=== PATIENT | female | born 1940 | race Caucasian/White ===

== ENCOUNTER 2022-06-08 06:34 | Inpatient (IN) | payer MEDICARE ==
[~2022-06-08] VITALS: Ht 154.9 cm; Wt 63.5 kg
[2022-06-08] MEDS ORDERED: ACETAMINOPHEN 325 MG TAB PO ONE (07:00)
[2022-06-08 07:11] LABS: BASOPHILS % 0.2 % (0.0-1.0); EOSINOPHILS % 0.1 % (0.0-6.0); HEMATOCRIT 40.5 % (34.2-44.1); HEMOGLOBIN 13.3 g/dL (12.0-16.0); LYMPHOCYTES # (AUTO) 1.4 (1.0-3.2); LYMPHOCYTES % 8.7 % (18.0-39.1); MEAN CORPUSCULAR HEMOGLOBIN 29.8 pg (28-32); MEAN CORPUSCULAR HGB CONC 32.8 g/dL (31-35); MEAN CORPUSCULAR VOLUME 90.8 fL (81-99); MONOCYTES # (AUTO) 1.5 (0.2-0.8); MONOCYTES % 9.2 % (4.4-11.3); NEUTROPHILS % 81.4 % (38.7-80.0); PLATELET COUNT 252 x10e3/uL (140-360); RED BLOOD COUNT 4.46 x10e6/uL (3.6-5.1); RED CELL DISTRIBUTION WIDTH 14.2 % (11.7-14.4)
[2022-06-08] MEDS ORDERED: SODIUM CHLORIDE 0.9% 1000ML 1,000 ML ONE (07:14)
[2022-06-08 07:23] LABS: CLARITY,URINE SL CLOUDY (CLEAR); COLOR,URINE YELLOW (YELLOW); KETONES,URINE NEGATIVE (NEGATIVE); LEUKOCYTE ESTERASE ,URINE MODERATE (NEGATIVE); NITRITE,URINE POSITIVE (NEGATIVE); PROTEIN,URINE DIPSTICK TRACE (NEGATIVE); URINE UROBILINOGEN 0.2 mg/dL (0.2 - 1)
[2022-06-08 07:31] LABS: ALBUMIN 3.2 g/dL (3.5-5.0); ALBUMIN/GLOBULIN RATIO 0.7 (0.8-2.0); ANION GAP 16.4 mmol/L (8-16); CALCIUM 8.9 mg/dL (8.4-10.2); CREATININE, SERUM 0.83 mg/dL (0.57-1.11); POTASSIUM 3.4 mmol/L (3.5-5.1)
[2022-06-08 07:37] LABS: BACTERIA,URINE MANY /HPF; WBC,URINE (MAN) 21-50 /HPF (0-5)
[2022-06-08] MEDS ORDERED: SODIUM CHLORIDE FLUSH 10 ML SYR INJ PRN (11:00)
[2022-06-08] MEDS ORDERED: ONDANSETRON HCL INJ 2MG/ML 2ML 2 MG/ML VIAL IV PRN (15:45)
[2022-06-08] MEDS ORDERED: ACETAMINOPHEN 325 MG TAB PO PRN (15:45)
[2022-06-08] MEDS ORDERED: POLYETHYLENE GLYCOL 3350 17 GM PACK PO PRN (15:45)
[2022-06-08] MEDS ORDERED: VITAMIN D350 MCG PO (16:54)
[2022-06-08] MEDS ORDERED: ATORVASTATIN CA10 MG PO (16:54)
[2022-06-08] MEDS ORDERED: ASPIRIN CHEW81 MG PO (16:54)
[2022-06-08] MEDS ORDERED: VESICARE5 MG PO (16:54)
[2022-06-08] MEDS ORDERED: VITAMIN C500 MG PO (16:54)
[2022-06-08] MEDS ORDERED: METOPROLOL PO (16:54)
[2022-06-08] MEDS ORDERED: OMEPRAZOLE20 M2 PO (16:54)
[2022-06-08] MEDS ORDERED: MYBETRIQ (16:54)
[2022-06-08] MEDS ORDERED: FLUOXETINE HCL20 M1 PO (16:54)
[2022-06-08] MEDS ORDERED: LOSARTAN POTASS50 MG PO (16:54)
[2022-06-08] MEDS ORDERED: [UNRECOGNIZED DRUG - OTHER] PO (16:56)
[2022-06-08] MEDS ORDERED: MYRBETRIQ50 MG PO (16:56)
[2022-06-08 17:05] VITALS: BP 158/87
[2022-06-08 17:06] VITALS: BP 158/87
[2022-06-08 17:11] VITALS: BP 158/87
[2022-06-08 17:17] VITALS: BP 158/87
[2022-06-08] MEDS: DOCUSATE SODIUM 100 MG CAP PO SCH (17:58)
[2022-06-08] MEDS: ASCORBIC ACID 500 MG TAB PO SCH (17:58)
[2022-06-08] MEDS: FAMOTIDINE 20 MG TAB PO SCH (17:58)
[2022-06-08] MEDS: ZINC SULFATE 220 MG CAP PO SCH (17:58)
[2022-06-08] MEDS ORDERED: NIRMATRELVIR/RITONAVIR 1 EACH BOX PO SCH (18:30)
[2022-06-08 20:00] VITALS: BP 145/81
[2022-06-08] MEDS ORDERED: SODIUM CHLORIDE 0.9% 250ML 250 ML ONE (20:47)
[2022-06-08] MEDS: ATORVASTATIN 10 MG TAB PO SCH (21:00)
[2022-06-08] MEDS: NIRMATRELVIR/RITONAVIR 1 EACH BOX PO SCH (22:02)
[2022-06-09] VITALS (7 sets, daily range): BP systolic 110–141; BP diastolic 56–85
[2022-06-09 05:56] LABS: BASOPHILS % 0.3 % (0.0-1.0); EOSINOPHILS % 0.1 % (0.0-6.0); HEMATOCRIT 38.2 % (34.2-44.1); HEMOGLOBIN 12.3 g/dL (12.0-16.0); LYMPHOCYTES % 8.7 % (18.0-39.1); MEAN CORPUSCULAR HEMOGLOBIN 29.8 pg (28-32); MEAN CORPUSCULAR HGB CONC 32.2 g/dL (31-35); MEAN CORPUSCULAR VOLUME 92.5 fL (81-99); MONOCYTES % 9.3 % (4.4-11.3); NEUTROPHILS # (AUTO) 8.9 (2.1-6.9); NEUTROPHILS % 81.1 % (38.7-80.0); PLATELET COUNT 243 x10e3/uL (140-360); RED BLOOD COUNT 4.13 x10e6/uL (3.6-5.1); RED CELL DISTRIBUTION WIDTH 14.6 % (11.7-14.4)
[2022-06-09 06:26] LABS: ALBUMIN 2.5 g/dL (3.5-5.0); ALBUMIN/GLOBULIN RATIO 0.6 (0.8-2.0); ANION GAP 15.2 mmol/L (8-16); CALCIUM 8.1 mg/dL (8.4-10.2); CREATININE, SERUM 0.81 mg/dL (0.57-1.11); MAGNESIUM 1.8 MG/DL (1.3-2.1); PHOSPHORUS 2.9 MG/DL (2.3-4.7); POTASSIUM 3.2 mmol/L (3.5-5.1)
[2022-06-09 06:48] LABS: THYROID STIMULATING HORMONE 1.87 uIU/mL (0.350-4.940)
[2022-06-09] MEDS: MIRABEGRON 50 MG PO SCH (09:00)
[2022-06-09] MEDS: [UNRECOGNIZED DRUG - OTHER] PO SCH ×2 (09:00→16:28)
[2022-06-09] MEDS ORDERED: ONDANSETRON HCL 4 MG ORAL DISINTEGRATING TAB PO PRN (09:15)
[2022-06-09] MEDS ORDERED: POTASSIUM CHLORIDE 10MEQ EA PO ONE (09:30)
[2022-06-09] MEDS: ASPIRIN 81 MG CHEW TAB PO SCH (09:51)
[2022-06-09] MEDS: FAMOTIDINE 20 MG TAB PO SCH ×2 (09:51→16:28)
[2022-06-09] MEDS: DOCUSATE SODIUM 100 MG CAP PO SCH ×2 (09:51→16:28)
[2022-06-09] MEDS: LOSARTAN POTASSIUM 25 MG TAB PO SCH (09:51)
[2022-06-09] MEDS: SOLIFENACIN SUCCINATE 5 MG TAB PO SCH (09:51)
[2022-06-09] MEDS: ZINC SULFATE 220 MG CAP PO SCH ×2 (09:52→16:29)
[2022-06-09] MEDS: CHOLECALCIFEROL 400 UNIT TAB PO SCH (09:52)
[2022-06-09] MEDS: FLUOXETINE HCL 20 MG CAP PO SCH (09:52)
[2022-06-09] MEDS: METOPROLOL SUCCINATE 50 MG TAB XL PO SCH (09:52)
[2022-06-09] MEDS: ASCORBIC ACID 500 MG TAB PO SCH ×2 (09:52→16:29)
[2022-06-09] MEDS: NIRMATRELVIR/RITONAVIR 1 EACH BOX PO SCH ×2 (11:49→20:52)
[2022-06-09] MEDS ORDERED: ZIPRASIDONE 20 MG VIAL IM PRN (20:15)
[2022-06-09] MEDS: ATORVASTATIN 10 MG TAB PO SCH (20:51)
[2022-06-10] VITALS (8 sets, daily range): BP systolic 145–171; BP diastolic 79–93
[2022-06-10 05:54] LABS: BASOPHILS % 0.4 % (0.0-1.0); EOSINOPHILS # (AUTO) 0.1 (0.0-0.4); EOSINOPHILS % 0.8 % (0.0-6.0); HEMATOCRIT 37.3 % (34.2-44.1); HEMOGLOBIN 12.1 g/dL (12.0-16.0); LYMPHOCYTES # (AUTO) 1.3 (1.0-3.2); LYMPHOCYTES % 16.9 % (18.0-39.1); MEAN CORPUSCULAR HEMOGLOBIN 29.4 pg (28-32); MEAN CORPUSCULAR HGB CONC 32.4 g/dL (31-35); MEAN CORPUSCULAR VOLUME 90.8 fL (81-99); MONOCYTES # (AUTO) 0.9 (0.2-0.8); MONOCYTES % 11.8 % (4.4-11.3); NEUTROPHILS # (AUTO) 5.5 (2.1-6.9); NEUTROPHILS % 69.5 % (38.7-80.0); PLATELET COUNT 259 x10e3/uL (140-360); RED BLOOD COUNT 4.11 x10e6/uL (3.6-5.1); RED CELL DISTRIBUTION WIDTH 14.6 % (11.7-14.4)
[2022-06-10 06:22] LABS: ALBUMIN 2.6 g/dL (3.5-5.0); ALBUMIN/GLOBULIN RATIO 0.7 (0.8-2.0); ANION GAP 13.7 mmol/L (8-16); CALCIUM 8.2 mg/dL (8.4-10.2); CREATININE, SERUM 0.7 mg/dL (0.57-1.11); MAGNESIUM 1.9 MG/DL (1.3-2.1); POTASSIUM 3.7 mmol/L (3.5-5.1)
[2022-06-10] MEDS: MIRABEGRON 50 MG PO SCH (09:00)
[2022-06-10] MEDS: [UNRECOGNIZED DRUG - OTHER] PO SCH ×2 (09:00→16:39)
[2022-06-10] MEDS: METOPROLOL SUCCINATE 50 MG TAB XL PO SCH (09:44)
[2022-06-10] MEDS: FLUOXETINE HCL 20 MG CAP PO SCH (09:44)
[2022-06-10] MEDS: DOCUSATE SODIUM 100 MG CAP PO SCH ×2 (09:44→17:02)
[2022-06-10] MEDS: ASPIRIN 81 MG CHEW TAB PO SCH (09:44)
[2022-06-10] MEDS: ZINC SULFATE 220 MG CAP PO SCH ×2 (09:45→17:02)
[2022-06-10] MEDS: ASCORBIC ACID 500 MG TAB PO SCH ×2 (09:45→17:02)
[2022-06-10] MEDS: FAMOTIDINE 20 MG TAB PO SCH ×2 (09:45→17:02)
[2022-06-10] MEDS: LOSARTAN POTASSIUM 25 MG TAB PO SCH (09:45)
[2022-06-10] MEDS: NIRMATRELVIR/RITONAVIR 1 EACH BOX PO SCH (09:46)
[2022-06-10] MEDS: SOLIFENACIN SUCCINATE 5 MG TAB PO SCH (09:46)
[2022-06-10] MEDS: CHOLECALCIFEROL 400 UNIT TAB PO SCH (09:46)
[2022-06-10] MEDS: ATORVASTATIN 10 MG TAB PO SCH (21:00)
[2022-06-11] VITALS (8 sets, daily range): BP systolic 136–170; BP diastolic 75–97
[2022-06-11 05:27] LABS: BASOPHILS % 0.3 % (0.0-1.0); EOSINOPHILS # (AUTO) 0.1 (0.0-0.4); EOSINOPHILS % 1.2 % (0.0-6.0); HEMATOCRIT 40.7 % (34.2-44.1); HEMOGLOBIN 12.7 g/dL (12.0-16.0); LYMPHOCYTES # (AUTO) 1.5 (1.0-3.2); LYMPHOCYTES % 15.5 % (18.0-39.1); MEAN CORPUSCULAR HEMOGLOBIN 29.1 pg (28-32); MEAN CORPUSCULAR HGB CONC 31.2 g/dL (31-35); MEAN CORPUSCULAR VOLUME 93.3 fL (81-99); MONOCYTES # (AUTO) 0.9 (0.2-0.8); MONOCYTES % 9.3 % (4.4-11.3); NEUTROPHILS # (AUTO) 7.2 (2.1-6.9); NEUTROPHILS % 73.3 % (38.7-80.0); PLATELET COUNT 277 x10e3/uL (140-360); RED BLOOD COUNT 4.36 x10e6/uL (3.6-5.1); RED CELL DISTRIBUTION WIDTH 14.5 % (11.7-14.4)
[2022-06-11 05:45] LABS: ANION GAP 12.7 mmol/L (8-16); CALCIUM 8.1 mg/dL (8.4-10.2); CREATININE, SERUM 0.79 mg/dL (0.57-1.11); POTASSIUM 3.7 mmol/L (3.5-5.1)
[2022-06-11] MEDS: FAMOTIDINE 20 MG TAB PO SCH ×2 (08:16→16:44)
[2022-06-11] MEDS: FLUOXETINE HCL 20 MG CAP PO SCH (08:17)
[2022-06-11] MEDS: SOLIFENACIN SUCCINATE 5 MG TAB PO SCH (08:17)
[2022-06-11] MEDS: ASPIRIN 81 MG CHEW TAB PO SCH (08:17)
[2022-06-11] MEDS: ASCORBIC ACID 500 MG TAB PO SCH ×2 (08:17→16:44)
[2022-06-11] MEDS: LOSARTAN POTASSIUM 25 MG TAB PO SCH (08:17)
[2022-06-11] MEDS: CHOLECALCIFEROL 400 UNIT TAB PO SCH (08:18)
[2022-06-11] MEDS: ZINC SULFATE 220 MG CAP PO SCH ×2 (08:18→16:44)
[2022-06-11] MEDS: METOPROLOL SUCCINATE 50 MG TAB XL PO SCH (08:18)
[2022-06-11] MEDS: DOCUSATE SODIUM 100 MG CAP PO SCH ×2 (08:18→16:44)
[2022-06-11] MEDS: [UNRECOGNIZED DRUG - OTHER] PO SCH ×2 (08:27→16:44)
[2022-06-11] MEDS: MIRABEGRON 50 MG PO SCH (08:27)
[2022-06-11] MEDS: ATORVASTATIN 10 MG TAB PO SCH (21:12)
[2022-06-12] VITALS (9 sets, daily range): BP systolic 142–155; BP diastolic 78–90
[2022-06-12 06:06] LABS: BASOPHILS % 0.3 % (0.0-1.0); EOSINOPHILS # (AUTO) 0.2 (0.0-0.4); EOSINOPHILS % 1.4 % (0.0-6.0); HEMATOCRIT 39.6 % (34.2-44.1); HEMOGLOBIN 12.5 g/dL (12.0-16.0); LYMPHOCYTES # (AUTO) 1.9 (1.0-3.2); LYMPHOCYTES % 16.3 % (18.0-39.1); MEAN CORPUSCULAR HEMOGLOBIN 29.6 pg (28-32); MEAN CORPUSCULAR HGB CONC 31.6 g/dL (31-35); MEAN CORPUSCULAR VOLUME 93.8 fL (81-99); MONOCYTES # (AUTO) 1.1 (0.2-0.8); NEUTROPHILS # (AUTO) 8.5 (2.1-6.9); NEUTROPHILS % 72.6 % (38.7-80.0); PLATELET COUNT 257 x10e3/uL (140-360); RED BLOOD COUNT 4.22 x10e6/uL (3.6-5.1); RED CELL DISTRIBUTION WIDTH 14.4 % (11.7-14.4)
[2022-06-12 06:51] LABS: ANION GAP 11.5 mmol/L (8-16); CALCIUM 8.6 mg/dL (8.4-10.2); CREATININE, SERUM 0.7 mg/dL (0.57-1.11); POTASSIUM 3.5 mmol/L (3.5-5.1)
[2022-06-12] MEDS: [UNRECOGNIZED DRUG - OTHER] PO SCH ×2 (09:00→16:42)
[2022-06-12] MEDS: MIRABEGRON 50 MG PO SCH (09:00)
[2022-06-12] MEDS: NIRMATRELVIR/RITONAVIR 1 EACH BOX PO SCH ×2 (09:27→20:39)
[2022-06-12] MEDS: FAMOTIDINE 20 MG TAB PO SCH ×2 (09:28→16:42)
[2022-06-12] MEDS: DOCUSATE SODIUM 100 MG CAP PO SCH ×2 (09:28→16:42)
[2022-06-12] MEDS: ASPIRIN 81 MG CHEW TAB PO SCH (09:28)
[2022-06-12] MEDS: LOSARTAN POTASSIUM 25 MG TAB PO SCH (09:29)
[2022-06-12] MEDS: FLUOXETINE HCL 20 MG CAP PO SCH (09:29)
[2022-06-12] MEDS: METOPROLOL SUCCINATE 50 MG TAB XL PO SCH (09:29)
[2022-06-12] MEDS: SOLIFENACIN SUCCINATE 5 MG TAB PO SCH (09:29)
[2022-06-12] MEDS: CHOLECALCIFEROL 400 UNIT TAB PO SCH (09:30)
[2022-06-12] MEDS: ZINC SULFATE 220 MG CAP PO SCH ×2 (09:30→16:42)
[2022-06-12] MEDS: ASCORBIC ACID 500 MG TAB PO SCH ×2 (09:30→16:42)
[2022-06-12] MEDS: ATORVASTATIN 10 MG TAB PO SCH (20:30)
[2022-06-12] MEDS ORDERED: ZIPRASIDONE 20 MG VIAL IM ONE (21:45)
[2022-06-13 03:41] VITALS: BP 146/91
[2022-06-13 05:57] LABS: BASOPHILS % 0.2 % (0.0-1.0); EOSINOPHILS # (AUTO) 0.1 (0.0-0.4); EOSINOPHILS % 0.6 % (0.0-6.0); HEMATOCRIT 38.9 % (34.2-44.1); HEMOGLOBIN 12.3 g/dL (12.0-16.0); LYMPHOCYTES # (AUTO) 1.7 (1.0-3.2); LYMPHOCYTES % 13.7 % (18.0-39.1); MEAN CORPUSCULAR HEMOGLOBIN 29.8 pg (28-32); MEAN CORPUSCULAR HGB CONC 31.6 g/dL (31-35); MEAN CORPUSCULAR VOLUME 94.2 fL (81-99); MONOCYTES # (AUTO) 1.2 (0.2-0.8); MONOCYTES % 9.6 % (4.4-11.3); NEUTROPHILS # (AUTO) 9.5 (2.1-6.9); NEUTROPHILS % 75.3 % (38.7-80.0); PLATELET COUNT 256 x10e3/uL (140-360); RED BLOOD COUNT 4.13 x10e6/uL (3.6-5.1)
[2022-06-13 06:35] LABS: ANION GAP 13.5 mmol/L (8-16); CALCIUM 8.5 mg/dL (8.4-10.2); CREATININE, SERUM 0.65 mg/dL (0.57-1.11); POTASSIUM 3.5 mmol/L (3.5-5.1)
[2022-06-13] MEDS: NIRMATRELVIR/RITONAVIR 1 EACH BOX PO SCH ×2 (07:30→20:52)
[2022-06-13 08:00] VITALS: BP 169/92
[2022-06-13] MEDS: SOLIFENACIN SUCCINATE 5 MG TAB PO SCH (08:50)
[2022-06-13] MEDS: ASCORBIC ACID 500 MG TAB PO SCH ×2 (08:50→17:35)
[2022-06-13] MEDS: LOSARTAN POTASSIUM 25 MG TAB PO SCH (08:50)
[2022-06-13] MEDS: FLUOXETINE HCL 20 MG CAP PO SCH (08:50)
[2022-06-13] MEDS: ZINC SULFATE 220 MG CAP PO SCH ×2 (08:51→17:35)
[2022-06-13] MEDS: ASPIRIN 81 MG CHEW TAB PO SCH (08:51)
[2022-06-13] MEDS: DOCUSATE SODIUM 100 MG CAP PO SCH ×2 (08:51→17:35)
[2022-06-13] MEDS: CHOLECALCIFEROL 400 UNIT TAB PO SCH (08:51)
[2022-06-13] MEDS: METOPROLOL SUCCINATE 50 MG TAB XL PO SCH (08:51)
[2022-06-13] MEDS: FAMOTIDINE 20 MG TAB PO SCH ×2 (08:51→17:35)
[2022-06-13] MEDS: [UNRECOGNIZED DRUG - OTHER] PO SCH ×2 (09:00→17:00)
[2022-06-13] MEDS: MIRABEGRON 50 MG PO SCH (09:00)
[2022-06-13 09:26] VITALS: BP 169/92
[2022-06-13 11:53] VITALS: BP 112/77
[2022-06-13 15:53] VITALS: BP 131/89
[2022-06-13] MEDS: LORAZEPAM 1 MG TAB PO PRN (17:35)
[2022-06-13 20:00] VITALS: BP 172/89
[2022-06-13] MEDS: ATORVASTATIN 10 MG TAB PO SCH (20:52)
[2022-06-14] VITALS (7 sets, daily range): BP systolic 118–178; BP diastolic 78–96
[2022-06-14] MEDS: HYDRALAZINE HCL 20 MG/ML VIAL IV PRN (04:51)
[2022-06-14] MEDS: NIRMATRELVIR/RITONAVIR 1 EACH BOX PO SCH ×2 (07:30→19:30)
[2022-06-14] MEDS: LORAZEPAM 1 MG TAB PO PRN (08:01)
[2022-06-14] MEDS: SOLIFENACIN SUCCINATE 5 MG TAB PO SCH (08:01)
[2022-06-14] MEDS: DOCUSATE SODIUM 100 MG CAP PO SCH ×2 (08:01→17:18)
[2022-06-14] MEDS: LOSARTAN POTASSIUM 25 MG TAB PO SCH (08:02)
[2022-06-14] MEDS: METOPROLOL SUCCINATE 50 MG TAB XL PO SCH (08:03)
[2022-06-14] MEDS: ASCORBIC ACID 500 MG TAB PO SCH ×2 (08:03→17:18)
[2022-06-14] MEDS: CHOLECALCIFEROL 400 UNIT TAB PO SCH (08:05)
[2022-06-14] MEDS: FLUOXETINE HCL 20 MG CAP PO SCH (08:05)
[2022-06-14] MEDS: FAMOTIDINE 20 MG TAB PO SCH ×2 (08:05→17:18)
[2022-06-14] MEDS: ASPIRIN 81 MG CHEW TAB PO SCH (08:05)
[2022-06-14] MEDS: ZINC SULFATE 220 MG CAP PO SCH ×2 (08:06→17:18)
[2022-06-14] MEDS: MIRABEGRON 50 MG PO SCH (09:00)
[2022-06-14] MEDS: [UNRECOGNIZED DRUG - OTHER] PO SCH ×2 (09:00→17:00)
[2022-06-14] MEDS: ATORVASTATIN 10 MG TAB PO SCH (20:07)
[2022-06-15] VITALS (7 sets, daily range): BP systolic 124–161; BP diastolic 75–98
[2022-06-15] MEDS: HYDRALAZINE HCL 20 MG/ML VIAL IV PRN (00:07)
[2022-06-15] MEDS: LORAZEPAM 1 MG TAB PO PRN ×2 (08:30→09:19)
[2022-06-15] MEDS: [UNRECOGNIZED DRUG - OTHER] PO SCH ×2 (09:00→17:00)
[2022-06-15] MEDS: MIRABEGRON 50 MG PO SCH (09:00)
[2022-06-15] MEDS: ASCORBIC ACID 500 MG TAB PO SCH ×2 (09:17→17:00)
[2022-06-15] MEDS: SOLIFENACIN SUCCINATE 5 MG TAB PO SCH (09:17)
[2022-06-15] MEDS: LOSARTAN POTASSIUM 25 MG TAB PO SCH (09:17)
[2022-06-15] MEDS: DOCUSATE SODIUM 100 MG CAP PO SCH ×2 (09:18→17:00)
[2022-06-15] MEDS: FLUOXETINE HCL 20 MG CAP PO SCH (09:18)
[2022-06-15] MEDS: ASPIRIN 81 MG CHEW TAB PO SCH (09:18)
[2022-06-15] MEDS: ZINC SULFATE 220 MG CAP PO SCH ×2 (09:18→17:00)
[2022-06-15] MEDS: FAMOTIDINE 20 MG TAB PO SCH ×2 (09:18→16:30)
[2022-06-15] MEDS: CHOLECALCIFEROL 400 UNIT TAB PO SCH (09:18)
[2022-06-15] MEDS: METOPROLOL SUCCINATE 50 MG TAB XL PO SCH (09:19)
[2022-06-15] MEDS: ATORVASTATIN 10 MG TAB PO SCH (21:11)
[2022-06-16] VITALS (7 sets, daily range): BP systolic 127–144; BP diastolic 69–99
[2022-06-16 05:58] LABS: BASOPHILS % 0.2 % (0.0-1.0); EOSINOPHILS # (AUTO) 0.1 (0.0-0.4); EOSINOPHILS % 0.5 % (0.0-6.0); HEMATOCRIT 36.9 % (34.2-44.1); HEMOGLOBIN 11.6 g/dL (12.0-16.0); LYMPHOCYTES # (AUTO) 1.6 (1.0-3.2); LYMPHOCYTES % 15.7 % (18.0-39.1); MEAN CORPUSCULAR HEMOGLOBIN 29.5 pg (28-32); MEAN CORPUSCULAR HGB CONC 31.4 g/dL (31-35); MEAN CORPUSCULAR VOLUME 93.9 fL (81-99); MONOCYTES # (AUTO) 1.2 (0.2-0.8); MONOCYTES % 11.4 % (4.4-11.3); NEUTROPHILS # (AUTO) 7.5 (2.1-6.9); NEUTROPHILS % 71.4 % (38.7-80.0); PLATELET COUNT 284 x10e3/uL (140-360); RED BLOOD COUNT 3.93 x10e6/uL (3.6-5.1); RED CELL DISTRIBUTION WIDTH 14.1 % (11.7-14.4)
[2022-06-16 06:19] LABS: ANION GAP 12.2 mmol/L (8-16); CALCIUM 8.7 mg/dL (8.4-10.2); CREATININE, SERUM 0.73 mg/dL (0.57-1.11); POTASSIUM 3.2 mmol/L (3.5-5.1)
[2022-06-16] MEDS: ZINC SULFATE 220 MG CAP PO SCH ×2 (08:38→16:41)
[2022-06-16] MEDS: FLUOXETINE HCL 20 MG CAP PO SCH (08:38)
[2022-06-16] MEDS: ASCORBIC ACID 500 MG TAB PO SCH ×2 (08:38→16:41)
[2022-06-16] MEDS: FAMOTIDINE 20 MG TAB PO SCH ×2 (08:38→16:41)
[2022-06-16] MEDS: CHOLECALCIFEROL 400 UNIT TAB PO SCH (08:38)
[2022-06-16] MEDS: LOSARTAN POTASSIUM 25 MG TAB PO SCH (08:38)
[2022-06-16] MEDS: DOCUSATE SODIUM 100 MG CAP PO SCH ×2 (08:38→16:41)
[2022-06-16] MEDS: ASPIRIN 81 MG CHEW TAB PO SCH (08:39)
[2022-06-16] MEDS: METOPROLOL SUCCINATE 50 MG TAB XL PO SCH (08:39)
[2022-06-16] MEDS: SOLIFENACIN SUCCINATE 5 MG TAB PO SCH (08:39)
[2022-06-16] MEDS: MIRABEGRON 50 MG PO SCH (09:00)
[2022-06-16] MEDS: [UNRECOGNIZED DRUG - OTHER] PO SCH ×2 (09:00→16:42)
[2022-06-16] MEDS ORDERED: POTASSIUM CHLORIDE 20 MEQ TAB CR PO ONE (10:45)
[2022-06-16] MEDS: ATORVASTATIN 10 MG TAB PO SCH (21:19)
[2022-06-17] VITALS (7 sets, daily range): BP systolic 121–154; BP diastolic 69–99
[2022-06-17 05:01] LABS: BASOPHILS % 0.3 % (0.0-1.0); EOSINOPHILS # (AUTO) 0.1 (0.0-0.4); EOSINOPHILS % 1.2 % (0.0-6.0); HEMATOCRIT 34.3 % (34.2-44.1); HEMOGLOBIN 10.6 g/dL (12.0-16.0); LYMPHOCYTES # (AUTO) 1.7 (1.0-3.2); LYMPHOCYTES % 17.6 % (18.0-39.1); MEAN CORPUSCULAR HEMOGLOBIN 29.2 pg (28-32); MEAN CORPUSCULAR HGB CONC 30.9 g/dL (31-35); MEAN CORPUSCULAR VOLUME 94.5 fL (81-99); MONOCYTES % 10.1 % (4.4-11.3); NEUTROPHILS # (AUTO) 6.7 (2.1-6.9); NEUTROPHILS % 70.2 % (38.7-80.0); PLATELET COUNT 276 x10e3/uL (140-360); RED BLOOD COUNT 3.63 x10e6/uL (3.6-5.1); RED CELL DISTRIBUTION WIDTH 13.8 % (11.7-14.4)
[2022-06-17 05:22] LABS: ANION GAP 10.5 mmol/L (8-16); CALCIUM 8.2 mg/dL (8.4-10.2); CREATININE, SERUM 0.66 mg/dL (0.57-1.11); MAGNESIUM 1.9 MG/DL (1.3-2.1); POTASSIUM 3.5 mmol/L (3.5-5.1)
[2022-06-17] MEDS: [UNRECOGNIZED DRUG - OTHER] PO SCH ×2 (09:00→17:00)
[2022-06-17] MEDS: MIRABEGRON 50 MG PO SCH (09:00)
[2022-06-17] MEDS ORDERED: POTASSIUM CHLORIDE 20 MEQ TAB CR PO ONE (09:15)
[2022-06-17] MEDS: FAMOTIDINE 20 MG TAB PO SCH ×2 (09:49→17:19)
[2022-06-17] MEDS: DOCUSATE SODIUM 100 MG CAP PO SCH ×2 (09:49→17:20)
[2022-06-17] MEDS: ASPIRIN 81 MG CHEW TAB PO SCH (09:49)
[2022-06-17] MEDS: FLUOXETINE HCL 20 MG CAP PO SCH (09:50)
[2022-06-17] MEDS: LOSARTAN POTASSIUM 25 MG TAB PO SCH (09:50)
[2022-06-17] MEDS: CHOLECALCIFEROL 400 UNIT TAB PO SCH (09:51)
[2022-06-17] MEDS: METOPROLOL SUCCINATE 50 MG TAB XL PO SCH (09:51)
[2022-06-17] MEDS: ZINC SULFATE 220 MG CAP PO SCH ×2 (09:51→17:20)
[2022-06-17] MEDS: SOLIFENACIN SUCCINATE 5 MG TAB PO SCH (09:51)
[2022-06-17] MEDS: ASCORBIC ACID 500 MG TAB PO SCH ×2 (09:51→17:21)
[2022-06-17] MEDS: ATORVASTATIN 10 MG TAB PO SCH (20:46)
[2022-06-17] MEDS ORDERED: SODIUM CHLORIDE 0.9% 250ML 250 ML ONE (21:52)
[2022-06-18] VITALS: BP 166/85
[2022-06-18 04:50] VITALS: BP 153/86
[2022-06-18 07:45] VITALS: BP 147/85
[2022-06-18] MEDS: MIRABEGRON 50 MG PO SCH (09:00)
[2022-06-18] MEDS: [UNRECOGNIZED DRUG - OTHER] PO SCH (09:00)
[2022-06-18] MEDS: SOLIFENACIN SUCCINATE 5 MG TAB PO SCH (10:09)
[2022-06-18] MEDS: LOSARTAN POTASSIUM 25 MG TAB PO SCH (10:10)
[2022-06-18] MEDS: DOCUSATE SODIUM 100 MG CAP PO SCH (10:10)
[2022-06-18] MEDS: ZINC SULFATE 220 MG CAP PO SCH (10:10)
[2022-06-18] MEDS: ASPIRIN 81 MG CHEW TAB PO SCH (10:10)
[2022-06-18] MEDS: METOPROLOL SUCCINATE 50 MG TAB XL PO SCH (10:10)
[2022-06-18] MEDS: CHOLECALCIFEROL 400 UNIT TAB PO SCH (10:10)
[2022-06-18] MEDS: FLUOXETINE HCL 20 MG CAP PO SCH (10:10)
[2022-06-18] MEDS: FAMOTIDINE 20 MG TAB PO SCH (10:10)
[2022-06-18] MEDS: ASCORBIC ACID 500 MG TAB PO SCH (10:38)
[2022-06-18 11:14] VITALS: BP 151/82
[2022-06-18 11:18] VITALS: BP 151/82
[2022-06-18 15:18] VITALS: BP 138/74
== END 2022-06-18 17:06 | DRG 178 ==
LOC: ER 06:40 → ERHOLD 10:49 → MED/SURG2 16:20 → OBSVTOIN 06-10 11:53
PROVIDERS: ADMIT Internal Medicine; ATTEND Internal Medicine
PROC: XW0DXF5 Introduction of Other New Technology Therapeutic Substance into Mouth and Pharynx, External Approach, New Technology Group 5 (ICD-10-PCS; principal; 2022-06-10)
DX: U07.1 COVID-19 (principal); N39.0 Urinary tract infection, site not specified; F03.90 Unspecified dementia, unspecified severity, without behavioral disturbance, psychotic disturbance, mood disturbance, and anxiety; R29.6 Repeated falls; I10 Essential (primary) hypertension; E87.6 Hypokalemia; M19.90 Unspecified osteoarthritis, unspecified site; K21.9 Gastro-esophageal reflux disease without esophagitis; B96.20 Unspecified Escherichia coli [E. coli] as the cause of diseases classified elsewhere; Z66 Do not resuscitate; Z90.49 Acquired absence of other specified parts of digestive tract; Z87.440 Personal history of urinary (tract) infections; Z88.5 Allergy status to narcotic agent; W19.XXXA Unspecified fall, initial encounter; Z91.81 History of falling; Y92.099 Unspecified place in other non-institutional residence as the place of occurrence of the external cause
CPT/HCPCS: 0223U; 36415; 70450; 72125; 72128; 72131; 72192; 80048; 80053; 80061; 81001; 82550; 82948; 83036; 83735; 84100; 84443; 84484; 85025; 87086; 87186; 93005; 94799; 99251; 99284; G0378; J0360; J0696; J3486; J7030; J7050